=== PATIENT | male | born 1985 | race Caucasian/White ===

== ENCOUNTER 2020-03-15 23:23 | Emergency (ER) | payer SELFPAY ==
[~2020-03-15] VITALS: Ht 177.8 cm; Wt 122.9 kg
[2020-03-15 23:31] VITALS: BP 153/93
--- NOTE | 2020-03-15 23:37 | NUR ---
PT AMBULATED TO BED 06 WITH STEADY GAIT.
--- NOTE | 2020-03-15 23:47 | NUR ---
34 Y/O M PRESENTS TO ED C/O DIZZINESS X 4 DAYS ACCOMPANIED BY VOMITING. VOMITED TWICE WITHIN THE 4 DAYS. PT STATES THAT HE IS A DIABETIC BUT NONCOMPLIANT WITH DIET AND MEDICATIONS. BS DURING TRIAGE IS 253. DENIES PAIN, SOB, COUGH. RR EVEN AND UNLABORED. LUNG SOUNDS CLEAR UPON AUSCULTATION. BED IN LOWEST POSITION, SIDE RAIL UP X1. WILL CONTINUE TO MONITOR. MHX: DIABETES NKA
[2020-03-16] MEDS ORDERED: NACL 0.9% 1,000 ML IV ONE (00:25)
[2020-03-16 01:01] LABS: BASOPHILS # (AUTO) 0.1 K/uL (0.00-0.22); BASOPHILS % (AUTO) 1.6 % (0.0-2.0); EOSINOPHILS % (AUTO) 1.2 % (0.0-4.0); LYMPHOCYTES # (AUTO) 1.1 K/uL (2.0-11.5); LYMPHOCYTES % (AUTO) 26.6 % (20.5-51.1); MEAN CORPUSCULAR HEMOGLOBIN 32 pg (27-31); MEAN CORPUSCULAR HGB CONC 35 g/dL (33-37); MEAN CORPUSCULAR VOLUME 91.8 fL (80-94); MONOCYTES # (AUTO) 0.3 K/uL (0.8-1.0); MONOCYTES % (AUTO) 7.7 % (1.7-9.3); NEUTROPHILS # (AUTO) 2.5 K/uL (1.8-7.7); NEUTROPHILS % (AUTO) 62.9 % (42.2-75.2); PLATELET COUNT (AUTO) 113 K/uL (140-450); RED BLOOD CELL COUNT(AUTO) 4.68 MIL/uL (4.20-6.10); RED CELL DISTRIBUTION WIDTH 12.6 % (11.6-13.7)
[2020-03-16 01:24] LABS: ALBUMIN 2.8 g/dL (3.4-5.0); ANION GAP 8.6 (8-16); CARBON DIOXIDE 30.1 mmol/L (21-32); CHOL/HDL RATIO 6.9 (1-4.5); CREATININE 0.9 mg/dL (0.6-1.3); POTASSIUM 3.7 mmol/L (3.5-5.1); TOTAL BILIRUBIN 0.6 mg/dL (0.0-1.0)
--- NOTE | 2020-03-16 01:49 | NUR ---
Note kori in EDM - 03/16/20 at 0151 by MEDTOM Patient discharged with v/s stable. Written and verbal after care instructions about type 2 diabetes given and explained. Patient alert, oriented and verbalized understanding of instructions. Ambulatory with steady gait. All questions addressed prior to discharge. ID band removed. Patient advised to follow up with PMD. Rx of metformin given. Patient educated on indication of medication including possible reaction and side effects. Opportunity to ask questions provided and answered.
--- NOTE | 2020-03-16 01:49 | NUR ---
Patient discharged with v/s stable by Dr Main. Written and verbal after care instructions about type 2 diabetes given and explained. Patient alert, oriented and verbalized understanding of instructions. Ambulatory with steady gait. All questions addressed prior to discharge. ID band removed. Patient advised to follow up with PMD. Rx of metformin given. Patient educated on indication of medication including possible reaction and side effects. Opportunity to ask questions provided and answered.
[2020-03-16 01:50] VITALS: BP 153/93
== END 2020-03-16 01:49 | disposition home or self-care (01) ==
LOC: MED 23:23
DX: R42 Dizziness and giddiness (principal); E11.9 Type 2 diabetes mellitus without complications; F17.210 Nicotine dependence, cigarettes, uncomplicated
CPT/HCPCS: 36415; 80053; 80061; 83036; 85025; 96360; 99283; J7030

== ENCOUNTER 2021-06-30 00:13 | Emergency (ER) | payer OTHER ==
[~2021-06-30] VITALS: Ht 177.8 cm; Wt 121.6 kg
[2021-06-30 00:16] VITALS: BP 170/100
--- NOTE | 2021-06-30 01:23 | NUR ---
PT AMBULATED TO BED 09.
--- NOTE | 2021-06-30 01:57 | NUR ---
ERMD AT BEDSIDE.
[2021-06-30] MEDS ORDERED: BEN50 PO (02:05)
[2021-06-30] MEDS ORDERED: PRED20TA5 PO (02:05)
--- NOTE | 2021-06-30 02:15 | NUR ---
NO NURSING INTERVENTIONS NEEDED AT THIS TIME, PT ASSESSMENT COMPLETED BY ONE[facility].
[2021-06-30 02:17] VITALS: BP 170/100
--- NOTE | 2021-06-30 02:17 | NUR ---
Patient discharged with v/s stable. Written and verbal after care instructions given and explained. Patient alert, oriented and verbalized understanding of instructions. Ambulatory with steady gait. All questions addressed prior to discharge. ID band removed. Patient advised to follow up with PMD. Patient made aware that electronic Rx of BENADRYL & PREDNISONE sent to [facility],. Patient educated on indication of medication including possible reaction and side effects. Opportunity to ask questions provided and answered.
== END 2021-06-30 02:17 | disposition home or self-care (01) ==
LOC: MED 00:13
DX: L50.9 Urticaria, unspecified (principal); E11.9 Type 2 diabetes mellitus without complications; Z79.899 Other long term (current) drug therapy
CPT/HCPCS: 99283